=== PATIENT | female | born 1995 | race Caucasian/White ===

== ENCOUNTER 2020-04-07 22:51 | Day surgery (SDC) | payer OTHER ==
[2020-04-07 23:24] VITALS: BMI 27.4
[2020-04-07 23:30] VITALS: BP 126/76
[2020-04-07] MEDS ORDERED: hydrALAZINE 20 MG/ML VIAL SLOW IVP PRN (23:38)
--- NOTE | 2020-04-07 23:40 | PDOC.LDHP ---
Labor and Delivery H&P HPI: Patient of Dr Stevenson Time: 2335 25 yo G1 at 37 weeks with CTX Q5-10minutes. No LOF, no VB, good FM. No fevers. Review of Systems: complete ROS performed and as perHPI Current gestational age (weeks): 37 Dating criteria: last menstrual period Grav: 1 Current complications: none Abnormal US findings: No Current medications: pre-aurora vitamins Previous surgical history: none Allergies/Adverse Reactions: Allergies Allergy/AdvReac Type Severity Reaction Status Date / Time iodine Allergy Anaphylaxis Verified 04/07/20 23:20 sumatriptan Allergy Severe Verified 04/07/20 23:20 Hives tramadol Allergy Hives Verified 04/07/20 23:20 Social history: none - Physical Exam Vital signs reviewed and normal: yes (126/76 74 98) General: NAD Lungs: nonlabored breathing Extremeties: no edema FHT: category 1 [place] contractions every: evry 5-10 - Vaginal Exam cm dilated: 1 (posterior) Effacement: 50% Station: -1 - Assessment Latent labor at early term - Plan Plan: observation in L&D (Recheck in 1 hr and if no signifiacnt change, ok for outpatient care)
== END 2020-04-08 00:45 | disposition home health service (06) ==
LOC: L&D/OP 22:51
PROVIDERS: ATTEND Obstetrics & Gynecology
DX: O47.1 False labor at or after 37 completed weeks of gestation (principal); Z3A.37 37 weeks gestation of pregnancy; Z88.5 Allergy status to narcotic agent; Z88.8 Allergy status to other drugs, medicaments and biological substances; Z91.041 Radiographic dye allergy status
CPT/HCPCS: 99283

== ENCOUNTER 2020-04-21 16:58 | Inpatient (IN) | payer OTHER ==
[~2020-04-21 16:58] MED LIST: Bupivacaine 0.25% HCL 30 ML VIAL ONE; Bupivacaine HCl 0.5%/Epinephrine 1:200,000/PF 30 ml Vial ONE; Bupivacaine/Epinephrine 0.25% 30 ML VIAL ONE
[2020-04-21 17:19] VITALS: BMI 28.7
--- NOTE | 2020-04-21 17:20 | PDOC.LDHP ---
Labor and Delivery H&P Chief complaint: other (sent from office w decreased FM and IUGR) HPI: Pt with US today for decreased FM, BPP 03/12 but growth suspected <10th%. Pt counseled and agrees to IOL. Current gestational age (weeks): 39 Due date: 04/28/20 Dating criteria: last menstrual period, first trimester ultrasound Grav: 1 Para: 0 OB History Details: uncomplicated , IUGR noted today Current complications: none, IUGR Abnormal US findings: No Past Medical History: anxiety, cold sores Current medications: none, pre-aurora vitamins, other (bonjesta) Previous surgical history: none Allergies/Adverse Reactions: Allergies Allergy/AdvReac Type Severity Reaction Status Date / Time iodine Allergy Anaphylaxis Verified 04/07/20 23:20 sumatriptan Allergy Severe Verified 04/07/20 23:20 Hives tramadol Allergy Hives Verified 04/07/20 23:20 Social history: none - Physical Exam Vital signs reviewed and normal: yes General: NAD Heart: RRR Lungs: CTAB Abdomen: gravid Extremeties: no edema FHT: category 1 - Vaginal Exam cm dilated: 1 - OB Labs Blood type: A RH: positive Antibody Screen: negative HIV: negative RPR: negative HEPSAg: negative 1 hour GCT: negative Urine drug screen: negative - Assessment L&D Assessment: medically indicated induction - Plan Plan: admit to L&D, cervical ripening, labor augmentation if indicated, informed consent obtained, anesthesia consult for pain management -: A/P: Cervical ripening for IOL for suspected IUGR (normal growth @ 36 weeks). Pt agrees to plan of care. Cytotec reviewed.
[2020-04-21] MEDS ORDERED: Ondansetron PF 4 MG/2 ML Vial IVP PRN (17:24)
[2020-04-21] MEDS ORDERED: Lidocaine 1% (PF) 30 ML VIAL SC PRN (17:24)
[2020-04-21] MEDS ORDERED: hydrALAZINE 20 MG/ML VIAL SLOW IVP PRN (17:24)
[2020-04-21] MEDS ORDERED: NS / Oxytocin 40 units/1000ml 1,000 ML IV PRN (17:24)
[2020-04-21] MEDS ORDERED: HYDROcodone/Acetaminophen 5/325 mg Tablet PO PRN ×2 (17:24)
[2020-04-21] MEDS ORDERED: Promethazine HCl 25 MG/ML VIAL IM PRN (17:24)
[2020-04-21] MEDS ORDERED: Ibuprofen 800 MG TAB PO PRN (17:24)
[2020-04-21] MEDS ORDERED: Misoprostol 100 MCG TAB VAG SCH (17:30)
[2020-04-21] MEDS ORDERED: NS w/ Oxytocin 10 units 500 ML IV SCH ×2 (17:30)
[2020-04-21] MEDS ORDERED: Lactated Ringer's 1,000 ML IV SCH (17:30)
[2020-04-21] MEDS ORDERED: Misoprostol 100 MCG TAB ONE (18:06)
[2020-04-21 18:59] LABS: Mean Corpuscular HGB CONC 32.7 g/dL (32.0-36.0); Mean Corpuscular Hemoglobin 27.8 pg (27.0-31.0); Mean Platelet Volume 7.2 fL (7.4-10.4); Platelet Count 373 thou/uL (130-400); RBC Distribution Width 11.7 % (11.5-14.5); Red Blood Cell (RBC) Count 3.96 mill/uL (4.20-5.40); White Blood Cell (WBC) Count 13.3 thou/uL (4.8-10.8)
[2020-04-21 19:37] LABS: Syphilis Antibody Nonreactive (Nonreactive); Syphilis Antibody Index 0.04 S/CO (<1.00 Non-Reactive)
[2020-04-21 19:38] LABS: HBSAg Index 0.14 S/CO (0-0.99); Hep B Surf Ag Non-Reactive S/CO (NonReactive)
[2020-04-21] MEDS ORDERED: Butorphanol Tartrate 1 MG/ML VIAL SLOW IVP PRN (21:48)
[2020-04-21] MEDS: Misoprostol 100 MCG TAB VAG SCH ×2 (23:07→23:08)
[2020-04-21] MEDS ORDERED: Fentanyl 4 mcg/Bup 0.1% Cadd 100 ML ONE (23:34)
[2020-04-22] MEDS ORDERED: Acetaminophen 325 MG TAB PO PRN (05:32)
[2020-04-22] MEDS ORDERED: diphenhydrAMINE 50 MG/ML VIAL IVP PRN (05:32)
[2020-04-22] MEDS ORDERED: Lactated Ringer's 500 ML IV PRN (05:32)
[2020-04-22] MEDS ORDERED: Ondansetron PF 4 MG/2 ML Vial IVP PRN ×2 (05:32→08:56)
[2020-04-22] MEDS ORDERED: EPHEDRINE 25 MG/5 ML SYRINGE SLOW IVP PRN (05:32)
[2020-04-22] MEDS ORDERED: Naloxone HCl 0.4 mg/ml Vial IVP PRN ×2 (05:32)
[2020-04-22] MEDS ORDERED: Promethazine HCl 25 MG/ML VIAL IM PRN (05:32)
[2020-04-22] MEDS ORDERED: Fentanyl 4 mcg/Bupivacaine 0.1% Cassette 100 ML EPIDURAL SCH (05:45)
[2020-04-22] MEDS ORDERED: Communication Order-Pharmacy FS SCH (05:45)
[2020-04-22] MEDS ORDERED: Terbutaline Sulfate 1 MG/ML VIAL ONE (05:58)
--- NOTE | 2020-04-22 07:20 | PRG ---
DATE OF SERVICE: 04/22/2020 TIME OF SERVICE: 0615 hours. As an OB hospitalist on-call, I was called on emergency basis to evaluate the patient in Labor and Delivery Room 6. Briefly, she has intrauterine growth restriction at 39 weeks gestation, received 1 Cytotec yesterday for induction of labor and has progressed without requiring more Cytotec or Pitocin. The patient was experiencing a prolonged variable decel, which was down into the 60s and lasted for approximately 12 minutes. The patient had been noted to progress fairly rapidly from 6-8 to 9 cm. Contractions were noted to be quite frequent every 90 seconds to 2 minutes with reduced relaxation between. There was no vaginal bleeding noted and no other signs of placental abruption. Decision was made to give the patient terbutaline 0.25 subcu x1. This seemed to have relieved the nature of her contractions and she was placed in the right lateral position. Infant at this time has a category 2-3 heart rate tracing. We will continue to observe. Dr. Stevenson was notified. Job ID: [id number]
--- NOTE | 2020-04-22 08:03 | PDOC.LDPN ---
Labor & Delivery Progress Note - Subjective Subjective: comfortable - Objective Vital signs reviewed and normal: yes General: resting Dilation: 10 Effacement: 100% Station: 2+ FHT: category 1 - Assessment (1) 39 weeks gestation of Code(s): Z3A.39 - 39 WEEKS GESTATION OF Current Visit: Yes Status: Acute Plan: continue plan of care
[2020-04-22] MEDS: NS / Oxytocin 40 units/1000ml 1,000 ML IV SCH ×2 (08:31→09:48)
--- NOTE | 2020-04-22 08:42 | PDOC.OPDEL ---
OB Operative/Delivery Note Delivery Dr/Surgeon: Graham Pre-Delivery Diagnosis: medically indicated induction (IUGR) Procedure/Post Delivery Dx: spontaneous vaginal delivery Weeks gestation: 39 Anesthesia: epidural - Findings A Sex: female - Additional Findings/Plan Placenta delivered: spontaneous Repaired Obstetrical Laceration: 2nd degree (and right labial) Estimated blood loss: 250ml Post delivery plan: routine recovery
[2020-04-22] MEDS ORDERED: diphenhydrAMINE 25 MG CAP PO PRN (08:56)
[2020-04-22] MEDS ORDERED: Preparation H Ointment 28 GM TUBE PR PRN (08:56)
[2020-04-22] MEDS ORDERED: hydrALAZINE 20 MG/ML VIAL SLOW IVP PRN (08:56)
[2020-04-22] MEDS ORDERED: Bisacodyl 10 MG SUPP PR PRN (08:56)
[2020-04-22] MEDS ORDERED: Adacel (T-DAP) 0.5 ML SYRINGE IM ONE (08:56)
[2020-04-22] MEDS ORDERED: HYDROcodone/Acetaminophen 5/325 mg Tablet PO PRN ×2 (08:56)
[2020-04-22] MEDS ORDERED: Benzocaine-Menthol 82.5 ML CAN TOP PRN (08:56)
[2020-04-22] MEDS ORDERED: Milk Of Magnesia 30 ML UDCUP PO PRN (08:56)
[2020-04-22] MEDS: Ibuprofen 800 MG TAB PO SCH ×2 (09:48→16:44)
[2020-04-22 12:47] LABS: SARS-CoV-2 MS2 Positive; SARS-CoV-2 N Gene Negative; SARS-CoV-2 S Gene Negative; SARS-CoV-2 by NAA Not Detected (NotDetected); SARS-CoV-2 orf1ab Negative
[2020-04-22] MEDS: Ferrous Sulfate 325 MG TAB PO SCH (16:28)
[2020-04-22] MEDS: Docusate Calcium (SURFAK) 240 MG CAP PO SCH ×2 (20:58→23:49)
[2020-04-22] MEDS: Prenatal Vitamin 1 TAB PO SCH (23:49)
[2020-04-22] MEDS: Misoprostol 100 MCG TAB VAG SCH ×2 (23:50→23:51)
[2020-04-23] MEDS: Ibuprofen 800 MG TAB PO SCH ×3 (00:46→19:08)
--- NOTE | 2020-04-23 06:06 | PDOC.PP ---
Post Progress Note Post Day #: PPD1 Subjective: Resting No c/o. PO intake tolerated: yes Flatus: yes Ambulation: yes Vital Signs (12 hours) Temp Pulse Resp BP Pulse Ox 04/22/20 20:04 98.4 F 65 16 104/63 98 04/22/20 19:59 98 Weight Weight 71.214 kg - Physical Examination General: NAD Respiratory: non-labored breathing Neurological: no gross focal deficits Psychiatric: normal affect Result Diagrams: 04/21/20 18:49 Additional Labs: Post Labs Hep Bs Antigen Non-Reactive S/CO (NonReactive) 04/21/20 18:49 Blood Type A POSITIVE 04/21/20 20:13 - Assessment/Plan Doing well. Routine care. Home on 04/24.
[2020-04-23] MEDS: Ferrous Sulfate 325 MG TAB PO SCH ×2 (09:30→19:38)
[2020-04-23] MEDS: Prenatal Vitamin 1 TAB PO SCH (09:57)
[2020-04-23] MEDS: Docusate Calcium (SURFAK) 240 MG CAP PO SCH ×2 (09:57→21:49)
[2020-04-24] MEDS: Ibuprofen 800 MG TAB PO SCH ×2 (02:19→06:35)
--- NOTE | 2020-04-24 06:30 | PDOC.PP ---
Post Progress Note Post Day #: PPD2 Subjective: No complaints this morning. No events overnight. Vaginal bleeding is minimal. Pain is a 2/10. No problems with food. Ambulating frequently. Passing flatus. Met w/ jewelry consultant yesterday - had no concerns. PO intake tolerated: yes Flatus: yes Ambulation: yes Vital Signs (12 hours) Temp Pulse Resp BP Pulse Ox 04/23/20 20:15 97.8 F 64 16 116/67 98 Weight Weight 71.214 kg - Physical Examination General: NAD Cardiovascular: RRR Respiratory: clear to auscultation bilaterally, non-labored breathing Abdominal: + bowel sounds, no distention, appropriately TTP Neurological: no gross focal deficits Psychiatric: A&Ox3, normal affect Result Diagrams: 04/21/20 18:49 Additional Labs: Post Labs Hep Bs Antigen Non-Reactive S/CO (NonReactive) 04/21/20 18:49 Rubella IgG Antibody 1.89 index (Immune >0.99) 04/21/20 18:49 Blood Type A POSITIVE 04/21/20 20:13 - Assessment/Plan @ 39 wks after mIOL for IUGR - Pain controlled - Progressing appropriately in post period - Plans to call clinic tomorrow to set f/u with Dr. Stevenson - No concerns or questions this mornign Plan: DC home Addendum - Attending - Attending Attestation Date/Time: 04/25/20928 I personally evaluated the patient and discussed the management with I agree with the History, Examination, Assessment and Plan documented above with any addition or exceptions noted below.
[2020-04-24 08:23] VITALS: BP 129/79; TEMP 98.5
[2020-04-24] MEDS: Prenatal Vitamin 1 TAB PO SCH (08:24)
[2020-04-24] MEDS: Docusate Calcium (SURFAK) 240 MG CAP PO SCH (08:26)
[2020-04-24] MEDS: Ferrous Sulfate 325 MG TAB PO SCH (08:26)
[2020-04-24] MEDS ORDERED: Ibuprofen 800 MG TAB PO SCH (14:00)
== END 2020-04-24 12:00 | disposition home or self-care (01) | DRG 807 ==
LOC: L&D 16:58 → 3SE 04-22 11:15
PROVIDERS: ADMIT Obstetrics & Gynecology; ATTEND Obstetrics & Gynecology
PROC: 3E0P7VZ Introduction of Hormone into Female Reproductive, Via Natural or Artificial Opening (ICD-10-PCS; principal; 2020-04-21)
PROC: 10E0XZZ Delivery of Products of Conception, External Approach (ICD-10-PCS; 2020-04-21)
PROC: 0KQM0ZZ Repair Perineum Muscle, Open Approach (ICD-10-PCS; 2020-04-21)
PROC: 3E033VJ Introduction of Other Hormone into Peripheral Vein, Percutaneous Approach (ICD-10-PCS; 2020-04-21)
DX: O36.5930 Maternal care for other known or suspected poor fetal growth, third trimester, not applicable or unspecified (principal); Z37.0 Single live birth; O70.1 Second degree perineal laceration during delivery; O99.344 Other mental disorders complicating childbirth; F41.9 Anxiety disorder, unspecified; Z3A.39 39 weeks gestation of pregnancy; Z20.828 Contact with and (suspected) exposure to other viral communicable diseases; Z88.8 Allergy status to other drugs, medicaments and biological substances
CPT/HCPCS: 36415; 51702; 85027; 86762; 86780; 86850; 86900; 86901; 87340; 87635; J0595; J0670; J3105; S0020; U0003